=== PATIENT | female | born 1955 | race Caucasian/White ===

== ENCOUNTER 2022-02-13 21:26 | Inpatient (IN) | payer OTHER, SELFPAY ==
--- NOTE | ~2022-02-13 | US_ITS ---
EXAMINATION: US arterial ankle brachial ind DATE: 02/14/2022 11:59 INDICATION: Peripheral arterial disease. TECHNIQUE: Segmental pressures and plethysmographic and Doppler waveforms of the brachial and lower e xtremity arteries were obtained. COMPARISON: None. FINDINGS: Right and left brachial artery pressures of 131 mm Hg and 148 mm Hg, respectively, are concordant (no rmal difference <= 30 mmHg). The right ankle-brachial index (GRECTHEN) is 0.97 (normal >= 0.9-1.0). The right great toe-brachial index (TBI) is 0.50 (normal >= 0.65). Arterial Doppler waveforms are at least biphasic at the ankle. The left GRETCHEN is 1.02. The left TBI is 0.35. Arterial Doppler waveforms are at least biphasic at the a nkle. IMPRESSION: 1. Decreased TBIs, mildly decreased right GRETCHEN, and normal left GRETCHEN, consistent with arterial occlusiv e disease. Note that ABIs be overestimated if arteries are calcified. Reviewed, dictated and finalized at location A. IMPRESSION: 1. Decreased TBIs, mildly decreased right GRETCHEN, and normal left GRETCHEN, consistent with arterial occlusive disease. Note that ABIs be overestimated if arteries ar e calcified.
--- NOTE | ~2022-02-13 | US_ITS ---
EXAMINATION: US venous doppler [facility] DATE: 02/14/2022 11:59 INDICATION: Right lower limb swelling. TECHNIQUE: Grayscale ultrasound images without and with compression and Doppler ultrasound images of the bilateral lower extremity veins were obtained. COMPARISON: None. FINDINGS: The visualized portions of right common femoral vein, profunda (deep) femoral vein, femoral vein, pop liteal vein, peroneal veins, posterior tibial veins, and greater saphenous vein outflow are patent. The visualized portions of left common femoral vein, profunda femoral vein, femoral vein, popliteal v ein, peroneal veins, posterior tibial veins, and greater saphenous vein outflow are patent. IMPRESSION: 1. No deep venous thrombosis. Reviewed, dictated and finalized at location A.
[2022-02-13 21:42] VITALS: BP 109/70; PULSE 79; RESP 16; TEMP 36.7; O2SAT 96
[2022-02-13 23:00] LABS: Squamous Epithelial Cell Urine Rare /hpf (Few); WBC Urine 0-3 /hpf
[2022-02-13 23:03] LABS: Appearance Urine Clear (Clear); Bilirubin Urine Negative (Negative); Blood Urine Negative (Negative); Color Urine Yellow (Yellow); Glucose Urine UA 3+ mg/dL (Negative); Ketones Urine Negative (Negative); Leukocyte Esterase Ur Negative LEU/UL (Negative); Nitrate Urine Negative (Negative); Protein Urine Negative (Negative); Specific Grav Ur 1.015 (1.001-1.035); Urobilinogen Urine 0.2 mg/dL (<2.0)
[2022-02-13 23:04] LABS: Add Urine Microscopic? YES
[2022-02-14] VITALS (14 sets, daily range): BP systolic 112–152; BP diastolic 51–69; PULSE 62–90; RESP 17–25; TEMP 36.1–36.5; O2SAT 95–99; BMI 63.1
--- NOTE | 2022-02-14 00:51 | ED.GENADULT ---
HPI - General Adult General Chief complaint: Unspecified <ALLAN York Last Filed: 02/14/22 04:05> Stated complaint: MULTIPLE COMPLAINTS <ALLAN York Last Filed: 02/14/22 04:05> Time Seen by Provider: 02/13/22 23:50 <ALLAN York Last Filed: 02/14/22 04:05> Source: patient <ALLAN York Last Filed: 02/14/22 04:05> Mode of arrival: ambulatory <ALLAN York Last Filed: 02/14/22 04:05> Limitations: no limitations <ALLAN York Last Filed: 02/14/22 04:05> History of Present Illness HPI narrative: Patient is a 66-year-old female who presents the ED with report of RLE cellulitis and diffuse rash. Patient reports she tripped and fell, landing on her right leg on 01/25. She developed an area of redness to her right anterior vance and was subsequently diagnosed with cellulitis of her right lower extremity. She has been seen at several different urgent cares, and admitted to several different hospitals for evaluation of this. She has finished 2 courses of clindamycin. She feels the cellulitis is not improving and the swelling/redness seems to be encompassing more of her right lower leg. She saw her doctor on Friday of this week and was switched to Keflex. She is only taken 1 day of this. Patient also reports having a diffuse itchy rash throughout her body which she states began a day after receiving IV antibiotics on one of her admissions. She is unsure which antibiotic she was given. She has been taking Benadryl for the itching. Her primary discussed steroids, but did not prescribe them as she is a poorly controlled diabetic. Patient also reports she had a negative RLE Doppler venous ultrasound on 02/05 at [facility]. Patient denies any fever, chills, nausea, vomiting, abdominal pain, CP, SOB. <ALLAN York Last Filed: 02/14/22 04:05> Related Data Home medications: Home Medications Medication Instructions Recorded Confirmed amlodipine 5 mg tablet 5 mg PO DAILY 06/08/19 02/14/22 aspirin 81 mg chewable tablet 81 mg PO DAILY 06/08/19 02/14/22 atenolol 50 mg tablet 50 mg PO DAILY 06/08/19 02/14/22 hydrochlorothiazide 25 mg tablet 25 mg PO DAILY 06/08/19 02/14/22 lisinopril 40 mg tablet 40 mg PO DAILY 06/08/19 02/14/22 metformin 1,000 mg tablet 1,000 mg PO BID 06/08/19 02/14/22 pravastatin 80 mg tablet 80 mg PO DAILY 06/08/19 02/14/22 calcium carbonate 600 mg-vitamin 1 cap PO DAILY 02/14/22 02/14/22 D3 10 mcg (400 unit) capsule empagliflozin 25 mg tablet 25 mg PO DAILY 02/14/22 02/14/22 (Jardiance) furosemide 40 mg tablet 40 mg PO DAILY 02/14/22 02/14/22 glimepiride 2 mg tablet 2 mg PO DAILY 02/14/22 02/14/22 multivitamin with folic acid 400 1 tablet PO DAILY 02/14/22 02/14/22 mcg tablet (Daily-Giulia (with folic acid)) potassium chloride 20 mEq 20 meq PO DAILY 02/14/22 02/14/22 tablet,extended release <Beatriz Prajapati PA-C - Last Filed: 02/14/22 04:05> Allergies/adverse reactions: Allergies Allergy/AdvReac Type Severity Reaction Status Date / Time sulfanilamide Allergy Unknown Itching Verified 02/14/22 00:31 Sulfa (Sulfonamide AdvReac Intermediate ITCHING Verified 02/14/22 00:31 Antibiotics) <Beatriz Prajapati PA-C - Last Filed: 02/14/22 04:05> Review of Systems Review of Systems: CONSTITUTIONAL: Denies fever, chills, or sweats. CARDIOVASCULAR: Denies chest pain, palpitations. RESPIRATORY: Denies cough or dyspnea. GASTROINTESTINAL: Denies abdominal pain, nausea, vomiting. SKIN: Reports RLE redness/swelling, diffuse rash. MUSCULOSKELETAL: Reports RLE pain. NEUROLOGIC: Denies numbness, tingling, or weakness. <Beatriz Prajapati PA-C - Last Filed: 02/14/22 04:05> All systems reviewed & are unremarkable except as noted in HPI and below <Beatriz Prajapati PA-C - Last Filed: 02/14/22 04:05> [facility] Past Medical History Medical History: Medical History (Updated 02/14/22 @ 04:
[2022-02-14 01:05] LABS: Basophils Percent Auto 0.2 % (0.2-1.2); Eosinophils Absolute Auto 0.8 K/mm3 (0-0.3); Eosinophils Percent Auto 6.9 % (0-4.4); Hematocrit 46.4 % (37.0-47.0); Hemoglobin 14.4 g/dL (12.0-15.0); Immature Granulocyte Absolute 0.17 K/mm3 (0.00-0.031); Immature Granulocyte Percent A 1.4 % (0-0.5); Lymphocytes Absolute Auto 2.85 K/mm3 (0.9-3.2); Lymphocytes Percent Auto 23.5 % (18.3-44.2); Mean Corpuscular Volume 90.1 fl (80-100); Mean Platelet Volume 11.4 fl (7.4-10.4); Monocytes Absolute Auto 1.1 K/mm3 (0.1-0.6); Monocytes Percent Auto 9.4 % (2.6-8.5); Neutrophils Absolute Auto 7.1 K/mm3 (1.3-6.7); Neutrophils Percent Auto 58.6 % (45.5-73.1); Platelet Count Result 166 k/mm3 (150-375); Red Blood Count 5.15 M/mm3 (4.2-5.4); Red Cell Distribution Width 13.9 % (11.5-14.5); White Blood Count 12.1 K/mm3 (4.5-10.0)
[2022-02-14 01:26] LABS: Alanine Aminotransferase 23 U/L (6-35); Albumin Level 4.4 g/dL (3.5-5.1); Alkaline Phosphatase 83 U/L (38-126); Anion Gap 10 mmol/L (8-16); Aspartate Amino Transferase 24 U/L (14-36); Bilirubin,Total 0.5 mg/dL (0.2-1.3); Blood Urea Nitrogen 21 mg/dL (7-17); Calcium 8.9 mg/dL (8.4-10.2); Carbon Dioxide 28 mmol/L (22-30); Chloride 100 mmol/L (98-107); Estimated CRCL calculation 75 ml/min; Estimated Glomerular Filt Rate > 60; Glucose 156 mg/dL (65-110); Potassium 4.2 mmol/L (3.4-5.0); Sodium 138 mmol/L (137-145)
[2022-02-14 01:33] LABS: D Dimer 2.74 ug/mL (<0.48)
[2022-02-14] MEDS: ENOXAPARIN 30 MG/0.3 ML SYRINGE SUB-Q (02:29)
[2022-02-14] MEDS: ENOXAPARIN 120 MG/0.8 ML SYRINGE SUB-Q (02:29)
--- NOTE | 2022-02-14 03:08 | ECG_ITS ---
Measurements Intervals [place] Rate: 61 P: 5 ND: 207 QRS: 8 QRSD: 76 T: 45 QT: 430 QTc: 435 Interpretive Statements SINUS RHYTHM LOW QRS VOLTAGE IN PRECORDIAL LEADS [QRS DEFLECTION < 1.0 mV IN CHEST LEADS] MINIMAL ST DEPRESSION [0.025+ mV ST DEPRESSION] NO PREVIOUS ECG AVAILABLE FOR COMPARISON Electronically Signed On 02-14-2022 18:17:22 CDT by Amelia Gallegos M.D.
[2022-02-14] MEDS: SODIUM CHLORIDE 0.9% IV 500 ML 999 ML IV CONT (03:20)
[2022-02-14] MEDS: ONDANSETRON INJ 4 MG/2 ML VIAL IV PUSH (03:20)
--- NOTE | 2022-02-14 03:29 | PC.NURSE ---
Bedside glucose 162
[2022-02-14 03:37] LABS: Glucose Point of Care 162 mg/dl (65-105)
[2022-02-14] MEDS: SODIUM CHLORIDE 0.9% IV 1,000 ML 999 ML IV CONT (03:52)
--- NOTE | 2022-02-14 04:14 | PM.IMHP ---
H&P: HPI History of Present Illness Date/Time: 02/14/22 04:14 Chief Complaint: rash Narrative: This is a 66-year-old female with past medical history significant for morbid obesity, type 2 diabetes mellitus, hypertension, dyslipidemia, sleep apnea on CPAP at nighttime. Patient has been treated for right lower extremity cellulitis in the outpatient setting comes back tonight due to rash in the trunk area and right lower extremity. Patient denies any fevers, rigors, chills, nausea, vomiting, abdominal pain, pain or burning with urination, cough, sputum production. preliminary workup was significant for elevated D-dimer, WBC 76046. Review of Systems Review of Systems: RASH IN THE TRUNK Constitutional: Constitutional: Denies chills, Denies fever(s), Denies malaise and Denies night sweats Eyes: Eyes: Denies change in vision ENT: Denies dysphagia, Denies vertigo, Denies dizziness and Denies odynophagia Cardiovascular: Cardiovascular: Denies chest pain, Denies irregular heart rhythm, Denies lightheadedness, Denies palpitations and Denies dyspnea on exertion Respiratory: Respiratory: Denies chest congestion, Denies cough, Denies excessive phlegm production and Denies dyspnea Gastrointestinal: Gastrointestinal: Denies dyspepsia, Denies heartburn, Denies nausea and Denies vomiting Genitourinary: Genitourinary: Denies dysuria Musculoskeletal: Musculoskeletal: Denies joint swelling and Denies muscle weakness Integumentary/Breasts: Skin/Breast: Reports erythema, Reports rash ( trunk) and Denies skin ulcer Neurologic: Denies vertigo, Denies dizziness, Denies focal weakness and Denies Sensory deficit (Neuro) Endocrine: Endocrine: Denies cold intolerance, Denies fatigue, Denies flushing, Denies heat intolerance, Denies polyphagia, Denies polydipsia and Denies palpitations Hematologic/Lymphatic: Hematologic/Lymphatic: Reports no additional hematologic/lymphatic complaints and Reports as per HPI Allergic/Immunologic: Allergic/Immunologic: Reports other ( rash) PMFSH Past Medical History Medical History (Updated 02/14/22 @ 04:21 by Leslie Scruggs MD) Diabetes Hx of adenomatous colonic polyps Hx of ectopic Hyperlipemia Hypertension Morbid obesity Sleep apnea Surgical History Surgical History History of partial colectomy Hx of colonoscopy Surgical history of tubal ligation Family History Family History (Updated 06/10/19 @ 11:39 by Sho Armstrong APRN) Father Hypertension Mother Hypertension Leukemia Sibling Hypertension Other Thyroid cancer Other Lung cancer Social History Social History Smoking status: Never smoker Alcohol intake: current Alcohol use details: 2 drinks per month Substance use: never Gender identity (if verbalized by the patient): Female Meds Home Medications and Allergies Home Medications Medication Instructions Recorded Confirmed Type amlodipine 5 mg tablet 5 mg PO DAILY 06/08/19 06/10/19 History aspirin 81 mg chewable tablet 81 mg PO DAILY 06/08/19 06/10/19 History atenolol 50 mg tablet 50 mg PO DAILY 06/08/19 06/10/19 History hydrochlorothiazide 25 mg tablet 25 mg PO DAILY 06/08/19 06/10/19 History lisinopril 40 mg tablet 40 mg PO DAILY 06/08/19 06/10/19 History metformin 1,000 mg tablet 1,000 mg PO BID 06/08/19 06/10/19 History pravastatin 80 mg tablet 80 mg PO DAILY 06/08/19 06/10/19 History empagliflozin 25 mg tablet 25 mg PO DAILY 02/14/22 History (Jardiance) multivitamin with folic acid 400 1 tablet PO DAILY 02/14/22 History mcg tablet (Daily-Giulia (with folic acid)) Allergies Allergy/AdvReac Type Severity Reaction Status Date / Time sulfanilamide Allergy Unknown Itching Verified 02/14/22 00:31 Sulfa (Sulfonamide AdvReac Intermediate ITCHING Verified 02/14/22 00:31 Antibiotics) Vital Signs Vital Signs - 24
[2022-02-14 04:16] LABS: Lactic Acid Reflex 1.2 mmol/L (0.7-2.0)
[2022-02-14 04:20] LABS: Troponin I < 0.012 ng/mL (0.000-0.034)
--- NOTE | 2022-02-14 04:40 | ADMGEN ---
This patient, Vi Nuno, was admitted to Medical Room 342-01. Patient/family oriented to hospital policies and general routines including ID bracelet, bed and alarms, visiting hours, pain management, procedures, bathroom and other care routines, personal items, smoking policy, room service/diet, and visiting hours. Information on how to activate the Rapid Response Team has been discussed. Patient/Family are encouraged to report perceived risks to care and to ask questions if they do not understand what they are told or what they should do.
--- NOTE | 2022-02-14 08:12 | PM.IMPN ---
Progress Note: A&P Assessment and Plan (1) Cellulitis of right lower extremity: Code(s): L03.115 - Cellulitis of right lower limb Status: Acute Assessment and Plan: Admit to regular medical floor Monitor vital signs, I&Os, neuro status and patient is a fall risk Monitor serum electrolytes, CBC, cultures, WBC and temp curve Pending cultures Consider a consult with wound care Consult pharmacy for vancomycin dosing, obtain trough level prior to the 4th dose and begin imipenem Pending Venous doppler And GRETCHEN Patient was started on (2) Elevated d-dimer: Code(s): R79.89 - Other specified abnormal findings of blood chemistry Status: Acute Assessment and Plan: venous Doppler pending continue to monitor (3) Morbid obesity: Code(s): E66.01 - Morbid (severe) obesity due to excess calories Status: Acute Assessment and Plan: lifestyle and diet modifications (4) Sleep apnea: Code(s): G47.30 - Sleep apnea, unspecified Status: Acute Assessment and Plan: CPAP at nighttime (5) Diabetes: Code(s): E11.9 - Type 2 diabetes mellitus without complications Status: Acute Assessment and Plan: Continue home meds 1800 calorie carb consistent diet Insulin Lispro sliding scale, Accu-checks qAc and HS and Hold oral hypoglycemics Obtain a HgbA1c (6) Hypertension: Code(s): I10 - Essential (primary) hypertension Status: Acute Assessment and Plan: will hold med dictations for now as patient with systolic below 90 (7) Rash and other nonspecific skin eruption: Code(s): R21 - Rash and other nonspecific skin eruption Status: Acute Assessment and Plan: suspect secondary to antibiotic patient received clindamycin 2 courses local care patient was started on Benadryl q.4 hours p.r.n., Pepcid 20 mg b.i.d., and cetirizine daily.-- no evidence of stridor or respiratory distress. Subjective Date/time seen: 02/14/22 08:12 Interval history: Patient is alert and oriented lying in bed. Patient is morbidly obese female who to presented to [facility] due to cellulitis of the right lower extremity and a diffuse rash that has been persistent since February 06 2022. Patient has tried [id number] medications such as Benadryl with relief of only itching. She continues to have this skin rash and scaly in appearance with some papules on the right lower extremity. For on a will continue Benadryl q.4 hours p.r.n., Pepcid, cetirizine, check venous and arterial Dopplers. Pending CRP. Patient was recently discharged from a nearby facility with a WBC of 10.2 upon discharge. The patient reports that her leg still appears the same as if it did on the day of discharge. She denies any chest pain, shortness breast, nausea, vomiting upset stomach or diarrhea. Patient did have 1 bout of diarrhea but reports today is been normal. She was started on Florastor. Review of Systems Review of Systems: All systems reviewed & are unremarkable except as noted in HPI and below Exam Narrative: General: No acute distress. Mental Status: Awake, alert and oriented to person, place, and time with clear speech. Skin: Skin in warm, dry and intact . ?rashes noted maculopapular rash abdomen borders irregular, color red, distribution and morphology round and serpiginous? Wounds: no wounds Head: Normocephalic and atraumatic. Eyes: Conjunctivae are clear without exudates or hemorrhage. Sclera is non-icteric. EOM are intact, PERRLA. Ears: The external ear and canal are non-tender and without swelling or discharge. Nose: Nasal mucosa is pink and moist. Septum midline. Nares patent bilaterally. Throat: Oral mucosa pink and moist with good dentition. Tongue midline. Neck: The neck supple without adenopathy. Trachea midline. No JVD. Cardiac: S1 and S2 regular rate and rhythm. No murmurs, gallops, or rubs auscultated. Respiratory: Chest wall symm
[2022-02-14 11:14] LABS: CRP 1.1 mg/dL (<1.0)
[2022-02-14] MEDS: diphenhydrAMINE HCl INJ 50 MG/ML VIAL 25 MG IV PUSH ×2 (16:45→20:51)
[2022-02-14] MEDS: SACCHAROMYCES BOULARDII 250 MG CAPSULE PO (17:53)
[2022-02-14 20:39] LABS: Glucose Point of Care 222 mg/dl (65-105)
[2022-02-14] MEDS: FAMOTIDINE 20 MG TABLET PO (20:49)
[2022-02-14] MEDS: MELATONIN 5 MG TABLET PO (20:50)
[2022-02-15] VITALS (11 sets, daily range): BP systolic 112–142; BP diastolic 59–74; PULSE 67–88; RESP 16–27; TEMP 36.2–36.8; O2SAT 95–98
[2022-02-15 05:40] LABS: Basophils Percent Auto 0.4 % (0.2-1.2); Eosinophils Absolute Auto 0.7 K/mm3 (0-0.3); Eosinophils Percent Auto 7.9 % (0-4.4); Hematocrit 41.6 % (37.0-47.0); Hemoglobin 13.2 g/dL (12.0-15.0); Immature Granulocyte Absolute 0.11 K/mm3 (0.00-0.031); Immature Granulocyte Percent A 1.3 % (0-0.5); Lymphocytes Absolute Auto 1.89 K/mm3 (0.9-3.2); Lymphocytes Percent Auto 22.9 % (18.3-44.2); Mean Corpuscular HGB Conc 31.7 g/dl (32-36); Mean Corpuscular Hemoglobin 28.1 pg (26-34); Mean Corpuscular Volume 88.7 fl (80-100); Monocytes Absolute Auto 0.8 K/mm3 (0.1-0.6); Monocytes Percent Auto 9.4 % (2.6-8.5); Neutrophils Absolute Auto 4.8 K/mm3 (1.3-6.7); Neutrophils Percent Auto 58.1 % (45.5-73.1); Platelet Count Result 131 k/mm3 (150-375); Red Blood Count 4.69 M/mm3 (4.2-5.4); Red Cell Distribution Width 13.6 % (11.5-14.5); White Blood Count 8.3 K/mm3 (4.5-10.0)
[2022-02-15 05:49] LABS: Alanine Aminotransferase 19 U/L (6-35); Albumin Level 3.8 g/dL (3.5-5.1); Alkaline Phosphatase 70 U/L (38-126); Anion Gap 8 mmol/L (8-16); Aspartate Amino Transferase 20 U/L (14-36); Bilirubin,Total 0.5 mg/dL (0.2-1.3); Blood Urea Nitrogen 14 mg/dL (7-17); Calcium 8.4 mg/dL (8.4-10.2); Carbon Dioxide 27 mmol/L (22-30); Chloride 100 mmol/L (98-107); Estimated CRCL calculation 92 ml/min; Estimated Glomerular Filt Rate > 60; Glucose 179 mg/dL (65-110); Sodium 135 mmol/L (137-145)
[2022-02-15] MEDS: ACETAMINOPHEN 325 MG TABLET 650 MG PO (06:17)
[2022-02-15] MEDS: diphenhydrAMINE HCl INJ 50 MG/ML VIAL 25 MG IV PUSH ×3 (06:18→21:48)
[2022-02-15] MEDS: SACCHAROMYCES BOULARDII 250 MG CAPSULE PO ×2 (08:41→16:20)
[2022-02-15] MEDS: LORATADINE 10 MG TABLET PO (08:41)
[2022-02-15] MEDS: FAMOTIDINE 20 MG TABLET PO ×2 (08:41→21:47)
[2022-02-15] MEDS: amLODIPine BESYLATE 5 MG TABLET PO (13:07)
[2022-02-15] MEDS: MULTIVITAMINS THERAPEUTIC TAB (*BKC) 1 TABLET PO (13:08)
[2022-02-15] MEDS: POTASSIUM CHLORIDE 20 MEQ TABLET.ER PO (13:08)
[2022-02-15] MEDS: PRAVASTATIN SODIUM 20 MG TABLET 80 MG PO (13:08)
[2022-02-15] MEDS: hydroCHLOROthiazide 25 MG TABLET PO (13:08)
[2022-02-15] MEDS: ASPIRIN 81 MG CHEWABLE TABLET PO (13:08)
[2022-02-15] MEDS: EMPAGLIFLOZIN 25 MG TABLET PO (13:08)
[2022-02-15] MEDS: atenoloL 50 MG TABLET PO (13:09)
[2022-02-15] MEDS: FUROSEMIDE 40 MG TABLET PO (13:09)
[2022-02-15] MEDS: lisinopriL 20 MG TABLET 40 MG PO (13:10)
--- NOTE | 2022-02-15 14:49 | PC.NURSE ---
Pt has some itching. Pt was given IV benadryl that she says helped the itching. Pt up with walker to the bathroom. Will continue to monitor pt.
[2022-02-15 15:32] LABS: Vancomycin Trough 17.1 ug/mL (10.0-20.0)
--- NOTE | 2022-02-15 15:51 | PM.IMPN ---
Progress Note: A&P Assessment and Plan (1) Cellulitis of right lower extremity: Code(s): L03.115 - Cellulitis of right lower limb Status: Acute Assessment and Plan: Admit to regular medical floor Monitor vital signs, I&Os, neuro status and patient is a fall risk Monitor serum electrolytes, CBC, cultures, WBC and temp curve Pending cultures Consider a consult with wound care Consult pharmacy for vancomycin dosing, obtain trough level prior to the 4th dose and begin imipenem Pending Venous doppler And GRETCHEN Patient was started on 02/15/2022 interval history: patient is 66-year-old morbidly obese patient was found to have cellulitis of right lower extremity initially patient was seen in urgent care and oral clindamycin was ordered and patient failed the therapy is cellulitis was worsening and went to [facility] where she was treated with IV clindamycin her cellulitis improved and patient was discharged however patient developed generalized rash and itching without any respiratory symptoms, presented emergency department and being admitted for allergic reaction most likely secondary to clindamycin, pain is being treated with Benadryl and started on vancomycin for cellulitis which appears to be improving, lower extremity Doppler is negative for DVT, not appear to be any distress and rash is resolving. (2) Elevated d-dimer: Code(s): R79.89 - Other specified abnormal findings of blood chemistry Status: Acute Assessment and Plan: venous Doppler pending continue to monitor (3) Morbid obesity: Code(s): E66.01 - Morbid (severe) obesity due to excess calories Status: Acute Assessment and Plan: lifestyle and diet modifications (4) Sleep apnea: Code(s): G47.30 - Sleep apnea, unspecified Status: Acute Assessment and Plan: CPAP at nighttime (5) Diabetes: Code(s): E11.9 - Type 2 diabetes mellitus without complications Status: Acute Assessment and Plan: Continue home meds 1800 calorie carb consistent diet Insulin Lispro sliding scale, Accu-checks qAc and HS and Hold oral hypoglycemics Obtain a HgbA1c (6) Hypertension: Code(s): I10 - Essential (primary) hypertension Status: Acute Assessment and Plan: will hold med dictations for now as patient with systolic below 90 (7) Rash and other nonspecific skin eruption: Code(s): R21 - Rash and other nonspecific skin eruption Status: Acute Assessment and Plan: suspect secondary to antibiotic patient received clindamycin 2 courses local care patient was started on Benadryl q.4 hours p.r.n., Pepcid 20 mg b.i.d., and cetirizine daily.-- no evidence of stridor or respiratory distress. Subjective Date/time seen: 02/15/22 15:51 ?rash HPI-Narrative: ?This is a 66-year-old female with past medical history significant for morbid obesity, type 2 diabetes mellitus, hypertension, dyslipidemia, sleep apnea on CPAP at nighttime.? Patient has been treated for right lower extremity cellulitis in the outpatient setting comes back tonight due to rash in the trunk area and right lower extremity.? Patient denies any fevers, rigors, chills, nausea, vomiting, abdominal pain, pain or burning with urination, cough, sputum production. preliminary workup was significant for elevated D-dimer, WBC 60165. 02/15/2022 interval history: patient is 66-year-old morbidly obese patient was found to have cellulitis of right lower extremity initially patient was seen in urgent care and oral clindamycin was ordered and patient failed the therapy is cellulitis was worsening and went to [facility] where she was treated with IV clindamycin her cellulitis improved and patient was discharged however patient developed generalized rash and itching without any respiratory symptoms, presented emergency department and being admitted for allergic reaction most likely secondary to cli
[2022-02-15] MEDS: metFORMIN HCL 500 MG TABLET 1000 MG PO (16:20)
[2022-02-15 16:52] LABS: Glucose Point of Care 175 mg/dl (65-105)
[2022-02-15 20:51] LABS: Glucose Point of Care 194 mg/dl (65-105)
[2022-02-15] MEDS: MELATONIN 5 MG TABLET PO (21:48)
[2022-02-16] VITALS (8 sets, daily range): BP systolic 106–117; BP diastolic 56–67; PULSE 65–81; RESP 14–22; TEMP 36.2–36.6; O2SAT 96–97
[2022-02-16 05:28] LABS: Basophils Absolute Auto 0.1 K/mm3 (0.0-0.1); Basophils Percent Auto 0.5 % (0.2-1.2); Eosinophils Absolute Auto 0.7 K/mm3 (0-0.3); Eosinophils Percent Auto 6.7 % (0-4.4); Hematocrit 41.3 % (37.0-47.0); Hemoglobin 13.2 g/dL (12.0-15.0); Immature Granulocyte Absolute 0.16 K/mm3 (0.00-0.031); Immature Granulocyte Percent A 1.5 % (0-0.5); Lymphocytes Absolute Auto 2.38 K/mm3 (0.9-3.2); Lymphocytes Percent Auto 22.5 % (18.3-44.2); Mean Corpuscular Hemoglobin 28.3 pg (26-34); Mean Corpuscular Volume 88.4 fl (80-100); Monocytes Absolute Auto 1.1 K/mm3 (0.1-0.6); Monocytes Percent Auto 10.8 % (2.6-8.5); Neutrophils Absolute Auto 6.2 K/mm3 (1.3-6.7); Platelet Count Result 140 k/mm3 (150-375); Red Blood Count 4.67 M/mm3 (4.2-5.4); Red Cell Distribution Width 13.7 % (11.5-14.5); White Blood Count 10.6 K/mm3 (4.5-10.0)
[2022-02-16 05:35] LABS: Alanine Aminotransferase 22 U/L (6-35); Alkaline Phosphatase 73 U/L (38-126); Anion Gap 7 mmol/L (8-16); Aspartate Amino Transferase 25 U/L (14-36); Bilirubin,Total 0.6 mg/dL (0.2-1.3); Blood Urea Nitrogen 18 mg/dL (7-17); Calcium 9.1 mg/dL (8.4-10.2); Carbon Dioxide 29 mmol/L (22-30); Chloride 98 mmol/L (98-107); Estimated CRCL calculation 92 ml/min; Estimated Glomerular Filt Rate > 60; Glucose 163 mg/dL (65-110); Sodium 134 mmol/L (137-145)
[2022-02-16] MEDS: ACETAMINOPHEN 325 MG TABLET 650 MG PO ×2 (06:06→20:39)
[2022-02-16 08:19] LABS: Glucose Point of Care 156 mg/dl (65-105)
[2022-02-16] MEDS: ASPIRIN 81 MG CHEWABLE TABLET PO (09:49)
[2022-02-16] MEDS: atenoloL 50 MG TABLET PO (09:49)
[2022-02-16] MEDS: amLODIPine BESYLATE 5 MG TABLET PO (09:49)
[2022-02-16] MEDS: EMPAGLIFLOZIN 25 MG TABLET PO (09:50)
[2022-02-16] MEDS: FAMOTIDINE 20 MG TABLET PO ×2 (09:50→20:42)
[2022-02-16] MEDS: FUROSEMIDE 40 MG TABLET PO (09:50)
[2022-02-16] MEDS: GLIMEPIRIDE 2 MG TABLET PO (09:50)
[2022-02-16] MEDS: hydroCHLOROthiazide 25 MG TABLET PO (09:50)
[2022-02-16] MEDS: metFORMIN HCL 500 MG TABLET 1000 MG PO ×2 (09:51→16:49)
[2022-02-16] MEDS: PRAVASTATIN SODIUM 20 MG TABLET 80 MG PO (09:51)
[2022-02-16] MEDS: lisinopriL 20 MG TABLET 40 MG PO (09:51)
[2022-02-16] MEDS: POTASSIUM CHLORIDE 20 MEQ TABLET.ER PO (09:51)
[2022-02-16] MEDS: MULTIVITAMINS THERAPEUTIC TAB (*BKC) 1 TABLET PO (09:51)
[2022-02-16] MEDS: LORATADINE 10 MG TABLET PO (09:51)
[2022-02-16] MEDS: SACCHAROMYCES BOULARDII 250 MG CAPSULE PO ×2 (09:52→16:48)
--- NOTE | 2022-02-16 11:57 | PM.IMPN ---
Progress Note: A&P Assessment and Plan (1) Cellulitis of right lower extremity: Code(s): L03.115 - Cellulitis of right lower limb Status: Acute Assessment and Plan: Admit to regular medical floor Monitor vital signs, I&Os, neuro status and patient is a fall risk Monitor serum electrolytes, CBC, cultures, WBC and temp curve Pending cultures Consider a consult with wound care Consult pharmacy for vancomycin dosing, obtain trough level prior to the 4th dose and begin imipenem Pending Venous doppler And GRETCHEN Patient was started on 02/15/2022 interval history: patient is 66-year-old morbidly obese patient was found to have cellulitis of right lower extremity initially patient was seen in urgent care and oral clindamycin was ordered and patient failed the therapy is cellulitis was worsening and went to [facility] where she was treated with IV clindamycin her cellulitis improved and patient was discharged however patient developed generalized rash and itching without any respiratory symptoms, presented emergency department and being admitted for allergic reaction most likely secondary to clindamycin, pain is being treated with Benadryl and started on vancomycin for cellulitis which appears to be improving, lower extremity Doppler is negative for DVT, not appear to be any distress and rash is resolving. 02/16/2022 interval history: patient is 66-year-old morbidly obese patient was found to have cellulitis of right lower extremity initially patient was seen in urgent care and oral clindamycin was ordered and patient failed the therapy as her right lower extremity cellulitis was worsening and went to [facility] where she was treated with IV clindamycin for her cellulitis admitted overnite and patient was discharged on clindamycin, however patient developed generalized rash and itching without any respiratory symptoms, presented emergency department and being admitted for allergic reaction most likely secondary to clindamycin, pain is being treated with Benadryl and started on vancomycin for cellulitis which appears to be improving, lower extremity Doppler is negative for DVT, not appear to be any distress and cellulitis is resolvin, will CPM one more day and possibly discharge patient tomorrow, (2) Elevated d-dimer: Code(s): R79.89 - Other specified abnormal findings of blood chemistry Status: Acute Assessment and Plan: venous Doppler pending continue to monitor (3) Morbid obesity: Code(s): E66.01 - Morbid (severe) obesity due to excess calories Status: Acute Assessment and Plan: lifestyle and diet modifications (4) Sleep apnea: Code(s): G47.30 - Sleep apnea, unspecified Status: Acute Assessment and Plan: CPAP at nighttime (5) Diabetes: Code(s): E11.9 - Type 2 diabetes mellitus without complications Status: Acute Assessment and Plan: Continue home meds 1800 calorie carb consistent diet Insulin Lispro sliding scale, Accu-checks qAc and HS and Hold oral hypoglycemics Obtain a HgbA1c (6) Hypertension: Code(s): I10 - Essential (primary) hypertension Status: Acute Assessment and Plan: will hold med dictations for now as patient with systolic below 90 (7) Rash and other nonspecific skin eruption: Code(s): R21 - Rash and other nonspecific skin eruption Status: Acute Assessment and Plan: suspect secondary to antibiotic patient received clindamycin 2 courses local care patient was started on Benadryl q.4 hours p.r.n., Pepcid 20 mg b.i.d., and cetirizine daily.-- no evidence of stridor or respiratory distress. Subjective Date/time seen: 02/16/22 11:57 02/16/2022 interval history: patient is 66-year-old morbidly obese patient was found to have cellulitis of right lower extremity initially patient was seen in urgent care and oral clindamycin was ordered and patient failed the
[2022-02-16 12:16] LABS: Glucose Point of Care 142 mg/dl (65-105)
[2022-02-16 17:19] LABS: Glucose Point of Care 155 mg/dl (65-105)
[2022-02-16] MEDS: MELATONIN 5 MG TABLET PO (20:38)
[2022-02-16] MEDS: diphenhydrAMINE HCl CAP 25 MG CAPSULE PO (20:38)
[2022-02-16 21:46] LABS: Glucose Point of Care 156 mg/dl (65-105)
[2022-02-17 05:31] VITALS: BP 104/52; PULSE 60; RESP 18; TEMP 36.1; O2SAT 98
[2022-02-17 07:53] LABS: Glucose Point of Care 181 mg/dl (65-105)
[2022-02-17 08:41] VITALS: PULSE 66
[2022-02-17] MEDS: metFORMIN HCL 500 MG TABLET 1000 MG PO (08:41)
[2022-02-17] MEDS: EMPAGLIFLOZIN 25 MG TABLET PO (08:41)
[2022-02-17] MEDS: atenoloL 50 MG TABLET PO (08:41)
[2022-02-17] MEDS: POTASSIUM CHLORIDE 20 MEQ TABLET.ER PO (08:41)
[2022-02-17] MEDS: PRAVASTATIN SODIUM 20 MG TABLET 80 MG PO (08:41)
[2022-02-17] MEDS: amLODIPine BESYLATE 5 MG TABLET PO (08:41)
[2022-02-17] MEDS: ASPIRIN 81 MG CHEWABLE TABLET PO (08:41)
[2022-02-17] MEDS: lisinopriL 20 MG TABLET 40 MG PO (08:42)
[2022-02-17] MEDS: FUROSEMIDE 40 MG TABLET PO (08:42)
[2022-02-17] MEDS: FAMOTIDINE 20 MG TABLET PO (08:42)
[2022-02-17] MEDS: hydroCHLOROthiazide 25 MG TABLET PO (08:42)
[2022-02-17] MEDS: MULTIVITAMINS THERAPEUTIC TAB (*BKC) 1 TABLET PO (08:42)
[2022-02-17] MEDS: LORATADINE 10 MG TABLET PO (08:42)
[2022-02-17] MEDS: SACCHAROMYCES BOULARDII 250 MG CAPSULE PO (08:42)
[2022-02-17] MEDS: GLIMEPIRIDE 2 MG TABLET PO (08:43)
--- NOTE | 2022-02-17 10:47 | PM.DS ---
DS: Admitting Diagnosis Discharge Date 02/17/2022 Admitting Diagnosis Rash DS: Discharge Diagnosis Discharge Diagnosis (1) Cellulitis of right lower extremity: Code(s): L03.115 - Cellulitis of right lower limb Status: Acute Assessment and Plan: Admit to regular medical floor Monitor vital signs, I&Os, neuro status and patient is a fall risk Monitor serum electrolytes, CBC, cultures, WBC and temp curve Pending cultures Consider a consult with wound care Consult pharmacy for vancomycin dosing, obtain trough level prior to the 4th dose and begin imipenem Pending Venous doppler And GRETCHEN Patient was started on 02/15/2022 interval history: patient is 66-year-old morbidly obese patient was found to have cellulitis of right lower extremity initially patient was seen in urgent care and oral clindamycin was ordered and patient failed the therapy is cellulitis was worsening and went to [facility] where she was treated with IV clindamycin her cellulitis improved and patient was discharged however patient developed generalized rash and itching without any respiratory symptoms, presented emergency department and being admitted for allergic reaction most likely secondary to clindamycin, pain is being treated with Benadryl and started on vancomycin for cellulitis which appears to be improving, lower extremity Doppler is negative for DVT, not appear to be any distress and rash is resolving. 02/16/2022 interval history: patient is 66-year-old morbidly obese patient was found to have cellulitis of right lower extremity initially patient was seen in urgent care and oral clindamycin was ordered and patient failed the therapy as her right lower extremity cellulitis was worsening and went to [facility] where she was treated with IV clindamycin for her cellulitis admitted overnite and patient was discharged on clindamycin, however patient developed generalized rash and itching without any respiratory symptoms, presented emergency department and being admitted for allergic reaction most likely secondary to clindamycin, pain is being treated with Benadryl and started on vancomycin for cellulitis which appears to be improving, lower extremity Doppler is negative for DVT, not appear to be any distress and cellulitis is resolvin, will CPM one more day and possibly discharge patient tomorrow, (2) Elevated d-dimer: Code(s): R79.89 - Other specified abnormal findings of blood chemistry Status: Acute Assessment and Plan: venous Doppler pending continue to monitor (3) Morbid obesity: Code(s): E66.01 - Morbid (severe) obesity due to excess calories Status: Acute Assessment and Plan: lifestyle and diet modifications (4) Sleep apnea: Code(s): G47.30 - Sleep apnea, unspecified Status: Acute Assessment and Plan: CPAP at nighttime (5) Diabetes: Code(s): E11.9 - Type 2 diabetes mellitus without complications Status: Acute Assessment and Plan: Continue home meds 1800 calorie carb consistent diet Insulin Lispro sliding scale, Accu-checks qAc and HS and Hold oral hypoglycemics Obtain a HgbA1c (6) Hypertension: Code(s): I10 - Essential (primary) hypertension Status: Acute Assessment and Plan: will hold med dictations for now as patient with systolic below 90 (7) Rash and other nonspecific skin eruption: Code(s): R21 - Rash and other nonspecific skin eruption Status: Acute Assessment and Plan: suspect secondary to antibiotic patient received clindamycin 2 courses local care patient was started on Benadryl q.4 hours p.r.n., Pepcid 20 mg b.i.d., and cetirizine daily.-- no evidence of stridor or respiratory distress. DS: Summary Hospital Course Reason for hospitalization: rash Narrative: ?This is a 66-year-old female with past medical history significant for morbid obesity, type 2 diabetes mellit
[2022-02-17 12:02] LABS: Glucose Point of Care 130 mg/dl (65-105)
[2022-02-17 14:00] VITALS: BP 113/64; PULSE 78; RESP 16; TEMP 35.8; O2SAT 100
== END 2022-02-17 15:00 | disposition home or self-care (01) | DRG 603 ==
LOC: ANHED 02-14 03:39 → ANH3MED 02-14 03:59
PROVIDERS: Nurse Practitioner Family; Physician Assistant; Admitting Provider Internal Medicine; Emergency Provider Emergency Medicine; PCP Internal Medicine Infectious Disease; Visit Provider Family Medicine
DX: L03.115 Cellulitis of right lower limb (principal); Z68.44 Body mass index [BMI] 60.0-69.9, adult; L27.0 Generalized skin eruption due to drugs and medicaments taken internally; E11.9 Type 2 diabetes mellitus without complications; I10 Essential (primary) hypertension; E66.01 Morbid (severe) obesity due to excess calories; E78.5 Hyperlipidemia, unspecified; G47.30 Sleep apnea, unspecified; T36.8X5A Adverse effect of other systemic antibiotics, initial encounter; R79.89 Other specified abnormal findings of blood chemistry; Z91.81 History of falling; R22.41 Localized swelling, mass and lump, right lower limb; Z90.49 Acquired absence of other specified parts of digestive tract; Z79.84 Long term (current) use of oral hypoglycemic drugs; Z79.82 Long term (current) use of aspirin
CPT/HCPCS: 36415; 80053; 80202; 81001; 82948; 83605; 84484; 85025; 85055; 85380; 86038; 86039; 86140; 87040; 87081; 93005; 93922; 93970; 94660; 96361; 96365; 96366; 96367; 96372; 96375; 96376; 99285; A9270; G0378; J0743; J1200; J1650; J2405; J3370; J7030; J7040

== ENCOUNTER 2023-09-06 13:04 | Emergency (ER) | payer OTHER, SELFPAY ==
--- NOTE | ~2023-09-06 | CT_ITS ---
EXAMINATION: CT abdomen pelvis w con DATE: 09/06/2023 14:30 INDICATION: RLQ and periumbilical pain TECHNIQUE: Computed tomography (CT) of the abdomen and pelvis was performed following the urinary byron ding the exam were intravenous contrast. Automated exposure control and iterative reconstruction tech nique were employed. The dose-length product was 1463.71 mGy-cm. COMPARISON: None. FINDINGS: Lower thorax: Bibasilar scar/atelectasis. Mitral, aortic valve, and mediastinal node calcification Liver: Normal. Biliary/Gallbladder: Gallbladder is absent. No bile duct dilation. Pancreas: No mass or duct dilation. Spleen: Normal. Adrenals:No mass. Kidneys: No suspicious mass, obstructing stone, or hydronephrosis. Simple left renal cysts. GI tract: No small or large bowel dilation. Uncomplicated transverse colon anastomosis. Status post r ight colon resection. Appendix surgically absent. Mesentery/Peritoneum: No ascites, mass, or free air. Retroperitoneum: No mass. Atherosclerotic abdominal aortic and/or arterial calcifications. Pelvis: Pelvic organs are within normal limits. Soft Tissues: Large fat-containing uncomplicated umbilical hernia. Uncomplicated small fat-containing adjacent ventral hernias. Bones: No acute osseous finding. IMPRESSION: No acute abdominopelvic process detected. Reviewed, dictated and finalized at location K. 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
[2023-09-06 13:08] VITALS: BP 120/75; PULSE 70; RESP 20; TEMP 36.9; O2SAT 97
--- NOTE | 2023-09-06 13:33 | ED.ABDPAIN ---
HPI - Abdominal Pain General Chief Complaint: Abdominal Pain Stated Complaint: abdominal pain Time Seen by Provider: 09/06/23 13:23 History of Present Illness HPI narrative: 68-year-old female with a history of diabetes, hypertension, hyperlipidemia, TOMAS, morbid obesity presents to the emergency department for abdominal pain since 0300 today. Patient states the pain is near her umbilicus where she has a known hernia. States it was radiating into her flank but is no longer. Prior abdominal surgeries include a bowel resection 10+ years ago for reported polyp and a salpingectomy many years ago for a ectopic . She reports associated nausea and diaphoresis, no emesis or fevers. Denies chest pain or shortness of breath, dysuria or hematuria, diarrhea. Last bowel movement was within the past hour and normal. Related Data Home Medications Medication Instructions Recorded Confirmed amlodipine 5 mg tablet 5 mg PO DAILY 06/08/19 02/14/22 aspirin 81 mg chewable tablet 81 mg PO DAILY 06/08/19 02/14/22 atenolol 50 mg tablet 50 mg PO DAILY 06/08/19 02/14/22 hydrochlorothiazide 25 mg tablet 25 mg PO DAILY 06/08/19 02/14/22 lisinopril 40 mg tablet 40 mg PO DAILY 06/08/19 02/14/22 metformin 1,000 mg tablet 1,000 mg PO BID 06/08/19 02/14/22 pravastatin 80 mg tablet 80 mg PO DAILY 06/08/19 02/14/22 calcium carbonate 600 mg-vitamin 1 cap PO DAILY 02/14/22 02/14/22 D3 10 mcg (400 unit) capsule empagliflozin 25 mg tablet 25 mg PO DAILY 02/14/22 02/14/22 (Jardiance) furosemide 40 mg tablet 40 mg PO DAILY 02/14/22 02/14/22 glimepiride 2 mg tablet 2 mg PO DAILY 02/14/22 02/14/22 multivitamin with folic acid 400 1 tablet PO DAILY 02/14/22 02/14/22 mcg tablet (Daily-Giulia (with folic acid)) potassium chloride 20 mEq 20 meq PO DAILY 02/14/22 02/14/22 tablet,extended release Allergies Allergy/AdvReac Type Severity Reaction Status Date / Time sulfanilamide Allergy Unknown Itching Verified 09/06/23 13:59 Sulfa (Sulfonamide AdvReac Intermediate ITCHING Verified 09/06/23 13:59 Antibiotics) Review of Systems Review of Systems: CONSTITUTIONAL: See HPI EYES: Denies visual changes, redness, or discharge. ENT: Denies rhinorrhea, congestion, sore throat, or otalgia. CARDIOVASCULAR: Denies chest pain, palpitations, or edema. RESPIRATORY: Denies cough or dyspnea. GASTROINTESTINAL: See HPI GENITOURINARY: Denies dysuria or hematuria. SKIN: Denies rash or itching. MUSCULOSKELETAL: Denies back pain, joint pain, or myalgia. NEUROLOGIC: Denies headache, numbness, or weakness. PSYCHIATRIC: Denies anxiety or depression. [facility] Past Medical History Medical History Diabetes Hx of adenomatous colonic polyps Hx of ectopic Hyperlipemia Hypertension Morbid obesity Sleep apnea Surgical History Surgical History History of partial colectomy Hx of colonoscopy Surgical history of tubal ligation Family History Family History Father Hypertension Mother Hypertension Leukemia Sibling Hypertension Other Thyroid cancer Other Lung cancer Social History Social History Smoking status: Never smoker Alcohol intake: current Alcohol use details: 2 drinks per month Substance use: never Substance use type: does not use Living arrangements: with family Gender identity (if verbalized by the patient): Female Spiritual care concerns: No Exam Narrative: GENERAL: Well-appearing, well-nourished, and in no acute distress. HEAD: Normocephalic, atraumatic. EYES: PERRLA and EOMI. ENT: Nares clear, no rhinorrhea or epistaxis. Mucous membranes moist. NECK: Supple. CHEST: Clear to auscultation. No respiratory distress. HEART: Regular rate and rhythm. No murmur heard. Normal peripheral
--- NOTE | 2023-09-06 13:36 | ECG_ITS ---
Measurements Intervals [place] Rate: 71 P: 30 TN: 220 QRS: 8 QRSD: 75 T: 53 QT: 386 QTc: 422 Interpretive Statements SINUS RHYTHM WITH FIRST DEGREE AV BLOCK LOW QRS VOLTAGE IN PRECORDIAL LEADS CONSIDER INFERIOR INFARCT, AGE INDETERMINATE BORDERLINE ST-T WAVE ABNORMALITY- HIGH LATERAL LEADS BASELINE ARTIFACT- I, II, AVR, V6 ABNORMAL ECG COMPARED TO ECG 02/14/2022 03:17:13 FIRST DEGREE AV BLOCK NOW PRESENT Electronically Signed On 09-06-2023 17:04:03 EQUIPMENT LEAD by Oseas No D.O.
[2023-09-06 13:51] LABS: Basophils Absolute Auto 0.1 K/mm3 (0.0-0.1); Basophils Percent Auto 0.5 % (0.2-1.2); Eosinophils Absolute Auto 0.4 K/mm3 (0-0.3); Hematocrit 43.9 % (37.0-47.0); Hemoglobin 14.2 g/dL (12.0-15.0); Immature Granulocyte Absolute 0.08 K/mm3 (0.00-0.031); Immature Granulocyte Percent A 0.8 % (0-0.5); Lymphocytes Absolute Auto 1.66 K/mm3 (0.9-3.2); Lymphocytes Percent Auto 16.6 % (18.3-44.2); Mean Corpuscular HGB Conc 32.3 g/dl (32-36); Mean Corpuscular Hemoglobin 28.5 pg (26-34); Mean Corpuscular Volume 88.2 fl (80-100); Monocytes Absolute Auto 0.9 K/mm3 (0.1-0.6); Neutrophils Absolute Auto 6.9 K/mm3 (1.3-6.7); Neutrophils Percent Auto 69.1 % (45.5-73.1); Platelet Count Result 306 k/mm3 (150-375); Red Blood Count 4.98 M/mm3 (4.2-5.4); Red Cell Distribution Width 13.6 % (11.5-14.5)
[2023-09-06] MEDS: ACETAMINOPHEN 500 MG TABLET 1000 MG PO (13:54)
[2023-09-06] MEDS: ONDANSETRON INJ 4 MG/2 ML VIAL IV PUSH (13:55)
[2023-09-06 13:56] VITALS: BP 123/89; PULSE 77; RESP 15; O2SAT 99
[2023-09-06 14:01] LABS: Lactic Acid Reflex 1.5 mmol/L (0.7-2.0)
[2023-09-06 14:02] LABS: Alanine Aminotransferase 24 U/L (6-35); Albumin Level 4.2 g/dL (3.5-5.1); Alkaline Phosphatase 80 U/L (38-126); Anion Gap 8 mmol/L (8-16); Aspartate Amino Transferase 25 U/L (14-36); Bilirubin,Total 0.7 mg/dL (0.2-1.3); Blood Urea Nitrogen 19 mg/dL (7-17); Calcium 10.9 mg/dL (8.4-10.2); Carbon Dioxide 26 mmol/L (22-30); Chloride 103 mmol/L (98-107); Estimated CRCL calculation 77 ml/min; Estimated Glomerular Filt Rate > 60; Glucose 162 mg/dL (65-110); Lipase 275 U/L (23-300); Potassium 4.1 mmol/L (3.4-5.0); Sodium 137 mmol/L (137-145)
[2023-09-06 14:05] LABS: Appearance Urine Clear (Clear); Bilirubin Urine Negative (Negative); Blood Urine Negative (Negative); Color Urine Yellow (Yellow); Glucose Urine UA 3+ mg/dL (Negative); Ketones Urine Trace mg/dL (Negative); Leukocyte Esterase Ur Negative LEU/UL (Negative); Nitrate Urine Negative (Negative); Protein Urine Negative (Negative); Urobilinogen Urine 0.2 mg/dL (<2.0)
[2023-09-06 14:10] LABS: Add Urine Microscopic? NO; Specific Grav Ur 1.039 (1.001-1.035)
[2023-09-06] MEDS: SODIUM CHLORIDE 0.9% IV 1,000 ML 999 ML IV CONT (15:36)
== END 2023-09-06 18:16 | disposition home or self-care (01) ==
PROVIDERS: Emergency Medicine; Emergency Provider Physician Assistant; PCP Internal Medicine Infectious Disease
DX: R10.33 Periumbilical pain (principal); I10 Essential (primary) hypertension; E11.9 Type 2 diabetes mellitus without complications; E78.5 Hyperlipidemia, unspecified; E66.01 Morbid (severe) obesity due to excess calories; Z68.43 Body mass index [BMI] 50.0-59.9, adult; G47.33 Obstructive sleep apnea (adult) (pediatric); Z86.010 Personal history of colon polyps; Z79.84 Long term (current) use of oral hypoglycemic drugs; Z79.82 Long term (current) use of aspirin
CPT/HCPCS: 36415; 74177; 80053; 81003; 83605; 83690; 85025; 93005; 96361; 96374; 99284; A9270; J2405; J7030; Q9967

== ENCOUNTER 2025-04-28 12:25 | Emergency (ER) | payer OTHER, SELFPAY ==
[2025-04-28] VITALS (39 sets, daily range): BP systolic 87–134; BP diastolic 60–103; PULSE 59–95; RESP 12–29; TEMP 36.6–36.9; O2SAT 86–100
--- NOTE | ~2025-04-28 | XR_ITS ---
EXAMINATION: XR shoulder LT min 2V, 04/28/2025 13:50 CDT HISTORY: post reduction film COMPARISON: Comparison same day. Findings: The humeral head is dislocated inferiorly. No significant degenerative changes. Soft tissues unremarkable. Impression: Persistent dislocation Reviewed, dictated and finalized at location P. Impression: Persistent dislocation
--- NOTE | ~2025-04-28 | XR_ITS ---
EXAMINATION: XR shoulder LT min 2V DATE: 04/28/2025 12:54 INDICATION: Fall. TECHNIQUE: 3 images of the left shoulder were obtained COMPARISON: None FINDINGS: Anterior dislocation of the left humeral head relative to the left glenohumeral joint. No fracture identified. Mild degenerative change in the left acromioclavicular joint. Bones appear osteopenic. IMPRESSION: 1. Anterior dislocation of the left humeral head relative to the left glenohumeral joint. A postreduction x-ray is recommended 2. No fracture identified. Reviewed, dictated and finalized at location Q. IMPRESSION: 1. Anterior dislocation of the left humeral head relative to the left glenohume ral joint. A postreduction x-ray is recommended 2. No fracture identified.
--- NOTE | ~2025-04-28 | XR_ITS ---
EXAMINATION: XR shoulder LT min 2V, 04/28/2025 14:00 CDT HISTORY: post reduction film COMPARISON: Comparison: Same day Findings: No acute fracture or malalignment. No significant degenerative changes. Soft tissues unremarkable. Impression: Interval reduction. Reviewed, dictated and finalized at location P. Impression: Interval reduction.
--- NOTE | 2025-04-28 12:28 | ECG_ITS ---
Test Date: 2025-04-28 12:39:22 Measurements Intervals [place] Rate: 70 P: -48 RI: 174 QRS: 21 QRSD: 81 T: 47 QT: 419 QTc: 454 Interpretive Statements SINUS RHYTHM WITH OCCASIONAL VENTRICULAR PREMATURE COMPLEXES LOW QRS VOLTAGE IN PRECORDIAL LEADS ANTEROSEPTAL INFARCT, AGE INDETERMINATE BASELINE ARTIFACT- I, II, III, AVR, AVL, AVF, V1, V3 ABNORMAL ECG No previous ECG available for comparison Electronically Signed On 04-28-2025 12:47:22 CDT by Oseas No D.O.
[2025-04-28] MEDS: ONDANSETRON INJ 4 MG/2 ML VIAL IV PUSH (12:39)
[2025-04-28] MEDS: MORPHINE SULFATE (*CRX) 4 MG/ML INJ IV PUSH (12:39)
--- NOTE | 2025-04-28 13:02 | PC.NURSE ---
This RN observed the pts monitor and O2 was about 88%. Went into the room and pt was asleep. Pt woke up as I entered. Asked pt if I could sit her up to try and improve her O2 saturation, however she declined because it was the most comfortable position for her shoulder injury. Pt O2 was better once she was awake. Pt is now @ 95% on RA. Pt reported that she does have sleep apnea and sleeps with a CPAP at home.
--- NOTE | 2025-04-28 13:19 | PC.NURSE ---
Per Lucille RN, pt moved to room 14 d/t shoulder dislocation and possible sedation needed to put back in palce.
[2025-04-28] MEDS: SODIUM CHLORIDE 0.9% IV 1,000 ML 999 ML (13:30)
--- OUTSIDE RECORDS SUMMARY | 2025-04-28 14:08 | XMS_ITS | Clinical Summary ---
Author Organization [facility] Address [address] [place] [address] Care Team Providers Care Manager Human Capital Name Role Phone Unavailable Primary Care Provider Unavailabl e Social History Tobacco Use Types Packs/Day Years Used Date Smoking Tobacco: Never Assessed Comments Unknown Sex and Gender Information Value Date Recorded Sex Assigned at Not on file Legal Sex Female 7:37 AM CDT Gender Identity Not on file Sexual Orientation Not on file Plan of Treatment Health Maintenance Due Date Last Done Comments Colorectal Cancer Screening Colonoscopy (10 Years) 1955 Hepatitis C 1973 DTaP, Tdap and Td Vaccines ( 1 - Tdap) 1974 Mammogram Screening 1995 Pneumococcal Vaccine: 50+ Ye ars (1 of 1 - PCV) 2005 Zoster Vaccines (1 of 2) 2005 Annual Medicare Wellness Visit 2020 Dexa Scan (General) 2020 COVID-19 Vaccine (1 - 2023-2 5 season) 2025 Influenza Adult (#1) 2025 RSV Immunization or 60+ Years (1 - 1-dose 75+ series) 2030 Hepatitis A Vaccines Aged Out No long er eligible based on patient's age to complete this topic Meningococcal B Vaccine Aged Out No l onger eligible based on patient's age to complete this topic Meningococcal Vaccine Aged Out No blaze sinan eligible based on patient's age to complete this topic RSV Immunizations Under 20 Months Aged Out No longer eligible based on patient's age to complete this topic Insurance [facility]
--- OUTSIDE RECORDS SUMMARY | 2025-04-28 14:08 | XMS_ITS | Clinical Summary ---
Author Organization [facility] Address [address] [address] Phone Care Team Providers Care Director Center Name Role Phone Jocelyne Meyers MD Primary Care Provider Allergies Active Allergy Reactions Criticality Noted Date Comments Clindamycin Itching,Rash 05/14/2022 Sulfate Unknown 08/31/2015 Medications lisinopril (PRINIVIL, ZESTRIL) 40 MG Tablet Take 40 mg by mouth daily. Active hydrochlorothia zide 25 MG Tablet Take 25 mg by mouth daily. Active atenolol (TENORMIN) 50 MG Tablet Take 50 mg by mouth daily. Active MetFORMIN HCl 1000 MG (MOD) TABLET SR 24 HR Take 1,000 Tabs by mouth 2 times daily. This RX is for Metformin SR. Active Aspirin 81 MG Tablet Take 81 mg by mouth daily. Active Calcium Carb-Cholecalci ferol (CALCIUM + D3 PO) Take by mouth 2 times daily. Active polyethylene glycol (MIRALAX) Powder Use entire 255g bottle with 64oz of clear liquid as directed for colonoscopy prep. 255 g 0 7 Active pravastatin (PRAVACHOL) 80 MG Tablet Take 80 mg by mouth. 0 Active furosemide (LASIX) 40 MG Tablet furosemide 40 mg tablet TAKE 1 TABLET BY MOUTH EVERY DAY NEEDED FOR 7 DAYS. Active empagliflozin (JARDIANCE) 25 MG Tablet Jardiance 25 mg tablet TAKE 1 TABLET BY MOUTH EVERY DAY 0 Active Lancets (OneTouch Delica Plus [id number]) [facility] USE TO TEST ONCE DAILY 2 Active Multiple Vitamin (Daily-Giulia Multivitamin) Tablet Take 1 Tablet by mouth daily. 2 Active hydroxychloroqu ine (PLAQUENIL) 200 MG Tablet Take 1 Tablet by mouth daily. 3 Active amLODIPine (NORVASC) 10 MG Tablet Take 10 mg by mouth daily. 3 Active Ozempic, 1 MG/DOSE, 4 MG/3ML Solution Pen-injector INJECT ONE MG UNDER THE SKIN EVERY WEEK 3 Active Active Problems Problem Noted Date Diagnosed Date Thrombocytopenic disorder 05/29/2022 Iron deficiency anemia 05/27/2022 Obstructive sleep apnea syndrome 08/28/2020 Primary hypertension 02/16/2018 Hyperlipidemia 02/16/2018 Diabetes mellitus 02/16/2018 Immunizations Immunization Administration Dates Next Due Covid-19 Vaccine, Vector-nr, [id number], Pf, 0.5 Ml ([employer]Scy[employer]) 09/12/2020 Influenza A Monovalent (H5n1 ), Adjuvanted-201204/06/2014 Influenza, Injectable, Quadrivalent 03/08,05/10/2021,04/06/2020,2018,03/16/2018,03/20/2017,05/13/2016,0 04/03/2015 Pneumococcal Vaccine - 13 Valent 12/22/2020 Pneumococcal Vaccine Adult - 23 Valent 03/20/2017 TDAP Vaccine 10/08/2021,07/07/2011 Family History Medical History Relation Name Comments Hypertension Father Abdominal Aortic Aneurysm Mother Hypertension Mother Leukemia/Lymphoma Mother Leukemia Hypertension Sister Relation Name Status Comments Brother Alive Father Alive Mother Sister Alive Social History Tobacco Use Types Packs/Day Years Used Date Smoking Tobacco: Never Smokeless Tobacco: Never Tobacco Cessation:Counseling Given: Not Answered Alcohol Use Standard Drinks/Week Comments Yes 0 (1 standard drink = 0.6 oz pur e alcohol) 4 Bloody Katharine's every 2 years Sexually Active Control Partners Comments Not Currently Comments No Sex and Gender Information Value Date Recorded Sex Assigned at Not on file Legal Sex Female 12:14 AM CDT Gender Identity Not on file Sexual Orientation Not on file Last Filed Vital Signs Vital Sign Reading Time Taken Comments Blood Pressure 128/70 02/11/2023 7:57 AM CDT Pulse 81 02/11/2023 7:57 AM CDT Temperature 36.8 C (98.2 F) 02/11/2023 7:57 AM CDT Respiratory Rate 18 02/11/2023 7:57 AM CDT Oxygen Saturation 95% 02/11/2023 7:57 AM CDT Inhaled Oxygen Concentration - - Weight 134.9 kg (297 lb 6.4 oz) 02/11/2023 7:57 AM CDT Height 157.5 cm (5' 2) 02/11/2023 7:57 AM CDT Body Mass Index 54.4 02/11/2023 7:57 AM CDT Plan of Treatment Health Maintenance Due Date Last Done Comments DEXA Bone Density 1955 Diabetes: Eye Exam 1955 Diabetes: Foot Exam 1955 Mammogram 1955 Cologuard 2000 Immunochemical Fecal Occult Blood 2000 Diabetes: Hemoglobin A1c 10/24/2015 04/24/2015 SARS-COV-2 Immunization (2 - Oscar risk series) 10/10/2020 09/12/2020 Colonoscopy 06/27/2021 06/27/2019, 11/2018, 06/09/2019, Additional history exists Colorectal Cancer Screening 06/27/2021 Medicare Initial AWV [id number] 07/07/2022 Diabetes: Nephropathy Screening 02/12/2024 02/11/2023, 04/15/2022 Influenza Immunization (#1) 03/07/20250 03/2024, 05/08/2023, 04/02/2022, Additional history exists Td Immunization Every 10 Years (Adults With 1 Tdap) 10/09/2031 10/08/2021, 07/07/2011 DTaP/Tdap/Td Immunization Discontinued 10/08/2021, 07/2011 Hepatitis C Virus (HCV) Screening Completed 12/12/2022 Pneumococcal Immunization (50+ years) Completed 08/04/2023, 12/22/2020, 03/20/2017 Pneumococcal Immunization Combined Discontinued 08/04/2023, 12/22/2020, 03/20/2017 Zoster Immunization Completed 06/26/2024, 4 Respiratory Syncytial Virus (RSV) Immunization (Adult) Completed 02/08/2025 Hepatitis B Immunization Aged Out No longer eligible based on patient's age to complete this topic Human Papillomavirus (HPV) Immunization Aged Out No longer eligible based on patient's age to complete this topic Meningococcal Immunization (ACWY) Aged Out No longer eligible based on patient's age to complete this topic Rotavirus Immunization Aged Out No lo nger eligible based on patient's age to complete this topic Procedures Procedure Name Priority Date/Time Associated Diagnosis Comments CMP (COMPREHENSIVE METABOLIC PANEL) Routine 02/11/2023 7:43 AM CDT Thrombocytopenia (HCC) HM COLONOSCOPY Routine 06/10/2019 HEMOGLOBIN, A1C Routine 04/24/2015 from Last 3 Months or Most Recently Relevant to Health Maintenance Results * (ABNORMAL) CMP (COMPREHENSIVE METABOLIC PANEL) (02/11/2023 7:43 AM CDT) Glucose 169(H) 70 - 105 mg/dL [facility] Blood Urea Nitrogen 21 7 - 25 mg/dL [facility] Creatinine 0.8 0.6 - 1.2 mg/dL [facility] Sodium 138 136 - 145 mEq/L [facility] Potassium 4.3 3.5 - 5.1 mEq/L [facility] Chloride 101 98 - 107 mEq/L [facility] Bicarbonate 26 21 - 31 mEq/L [facility] Total Bilirubin 0.4 0.3 - 1.0 mg/dL [facility] Alk. Phosphatase 67 34 - 104 U/L [facility] Aspartate Aminotransferase 15 13 - 39 U/L [facility] Alanine Aminotransferase 17 7 - 52 U/L [facility] Total Protein 7.0 6.4 - 8.9 g/dL [facility] Albumin 4.2 3.5 - 5.7 g/dL [facility] Calcium 10.0 8.6 - 10.3 mg/dL [facility] Anion Gap 15.3(H) 7.0 - 15.0 mEq/L [facility] Globulin 2.8 2.0 - 3.5 g/dL [facility] EGFR 80 >60 ml/min/1. 73m2 [facility] Comment: This eGFR is calculated using 2020 CKD-EPI Creatinine equation without race modifier based on the NKF-ASN task force recommendations Blood 02/11/2023 7:43 AM CDT Narrative [facility] - 02/11/2023 8:56 AM CDT Release to patient->Immediate IS THE PATIENT REQUIRED TO BE FASTING FOR 8 HOURS?->No Louann Menjivar APRN, CNP CHEMISTRY ORDERABLES Final Result [facility] [address] [place] [address], * COLONOSCOPY (06/10/2019) Mayito Sanchez DO PROCEDURE/MINOR SURGICAL ORDERA BLES Final Result * HEMOGLOBIN, A1C (04/24/2015) HGB-A1C 6.5 % Blood specimen (specimen) Jocelyne Meyers MD CHEMISTRY ORDERABLES Ed ited Result - Final from Last 3 Months or Most Recently Relevant to Health Maintenance Insurance MEDICAID [facility] PL[facility] MEDICARE C [facility] Care Teams Director Center Relationship Specialty Start Date End Date Jocelyne Meyers MD [address] [place] [address] PCP - General Internal Medicine 08/28/15
--- OUTSIDE RECORDS SUMMARY | 2025-04-28 14:08 | XMS_ITS | Encounter Summary ---
Author Organization [facility] Address [address] [place] [address] Care Team Providers Care Digital Marketing Executive Name Role Phone Jocelyne Meyers MD Primary Care Provider Reason for Visit * Reason Onset Date Comments Med Question 10/15/2024 Encounter Details Date Type Department Care Team (Late st Contact Info) Description 10/15/2024 Telephone [facility] - Dermatology [address] [place] [address], [facility] [place] [address] Ruslan Valle MD [address] [place] [address] 3 [place] [address] Med Question Social History Tobacco Use Types Packs/Day Years Used Date Smoking Tobacco: Never Smokeless Tobacco: Never Alcohol Use Standard Drinks/Week Comments Yes 0 (1 standard drink = 0.6 oz pur e alcohol) AUDIT-C Answer Date Recorded Q1: How often do you have a drink containing alc ohol? 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 Please assist and advise documented in this encounter Plan of Treatment Upcoming Encounters Date Type Department Care Team (Latest Contact Info) Description 12/12/2025 12:15 PM CDT Hospital Encounter [facility] [address] [place] [address] Lindsay Reid DO [address] [facility] [address] [place] [address] Surgery General 12/12/2025 12:15 PM CDT - 12/12/2025 1:00 PM CDT Surgery [facility] [address] [place] [address] Lindsay Reid DO [address] [facility] [address] [place] [address] COLONOSCOPY DIAGNOSTIC--w/ Jeanette--2 day extended prep Scheduled Procedures Name Priority Associated Diagnoses Date/Ti me COLONOSCOPY DIAGNOSTIC Family history of colon cancer Hx of adenomatous colonic polyps 12/12/2025 12:15 PM CDT documented as of this encounter Visit Diagnoses Not on filedocumented in this encounter Care Teams Digital Marketing Executive Relationship Specialty [place] [address] [place] [phone] PCP - General 01/06/20 documented as of this encounter
--- OUTSIDE RECORDS SUMMARY | 2025-04-28 14:08 | XMS_ITS | Clinical Summary ---
Author Organization [facility] Address [address] [place] [address] Care Team Providers Care Accredited Farm Manager Name Role Phone Jocelyne Meyers MD Primary Care Provider Source Comments [facility],non-owned Affiliates and Associated Physician Practices is amultiple site organization consisting of ambulatory clinics and hospital sitesin [place], [place], [place] and [place]. This disclosure is being madepursuant to the Care Everywhere program and may not contain all information available regarding this patient. Last updated 18.[facility] Allergies Active Allergy Reactions Criticality Noted Date Comments Clindamycin Itching 05/14/2022 Sulfa Drugs Rash High 10/29/2023 Sulfacetamide Rash High 02/16/2018 Sulfate Unknown 08/31/2015 Medications * Be aware that medications may not be up to date on this document. Alwaysverify current medications with the patient. hydroCHLOROth iazide (HYDRODIURIL) 25 MG tablet hydrochlorothiazide 25 mg tablet Active lisinopril (PRINIVIL; ZESTRIL) 40 MG tablet lisinopril 40 mg tablet Active metFORMIN (GLUCOPHAGE) 1000 MG tablet Take 1 (one) tablet by mouth 2 times daily 01/11/20 20 Active pravastatin (PRAVACHOL) 80 MG tablet Take 1 (one) tablet by mouth once daily 01/11/20 20 Active Ozempic, 1 MG/DOSE, 4 MG/3ML pen INJECT ONE MG UNDER THE SKIN EVERY WEEK 11/30/19 23 Active amLODIPine (Norvasc) 10 MG tablet Take 1 (one) tablet by mouth once daily 09/20/19 23 Active Aspirin Low Dose 81 MG tablet Take 1 (one) tablet by mouth once daily 10/04/19 23 Active atenolol (Tenormin) 50 MG tablet Take 1 (one) tablet by mouth once daily 11/30/19 23 Active Calcium + Vitamin D3 600-10 MG-MCG Take 1 (one) tablet by mouth 2 times daily 06/25/20 22 Active Jardiance 25 MG tablet Take 1 (one) tablet by mouth once daily 09/19/19 23 Active Multiple Vitamin (Daily-Giulia Multivitamin) TABS Take 1 (one) tablet by mouth once daily 10/17/19 23 Active polyethylene glycol 3350 (Miralax) 17 GM/SCOOP powder MIX 17 GRAMS (1 CAPFUL) AND DRINK ONCE DAILY NEEDED FOR 7 DAYS 02/15/20 22 Active tacrolimus (Protopic) 0.1 % ointmentIndic ations:Other eczema Apply to affected area on face BID. 30 day supply. 60 g 11 06/23/20 24 Active doxycycline hyclate 100 MG tabletIndicat ions:Acne Vulgaris Take 1 (one) tablet by mouth 2 times daily Reasons: Common Acne 60 tablet 2 10/14/19 25 Active metroNIDAZOLE , topical, (Metrocream) 0.75 % creamIndicati ons:Other rosacea Apply to face twice daily. 3- days supply. 45 g 11 10/14/19 25 Active sodium sulfate-mag sulfate-KCl (Sutab) 2922-936-027 MG tablet At 5pm the night before your colonoscopy, Step 1: open one bottle of the 12 tablets. Step 2: Fill the provided container with 16 ounces of water (up to the fill line). Swallow each tablet with a sip of water and drink the entire amount of water over 15-20 minutes. Step 3: Approximately 1 hour after the last tablet is ingested, fill the provided container again with 16 ounces of water (up to the fill line) and drink the entire amount over 30 minutes. Step 4: Approximately 30 minutes after finishing the second container of water, fill the provided container with 16 ounces of water (up to the fill line) and drink the entire amount over 30 minutes. Step 5: At 4am, the day of your colonoscopy---repeat step 1 through 4 again 1 kit 02/02/20 25 Active bisacodyl EC (Dulcolax) 5 MG tablet Take all 4 tablets orally at noon the day before your colonoscopy 4 tablet 02/08/20 25 Active polyethylene glycol 3350 (Miralax) 17 GM/SCOOP powder Mix all of powder with 64oz liquid. Drink half of mixture at 5pm the night before colonoscopy. Finish at 4am the day of test 238 g 02/08/20 25 Active ezetimibe (Zetia) 10 MG tablet Take 1 (one) tablet by mouth once daily Active Active Problems No known active problems Encounters Date Type Department Care Team Description 02/15/2025 Patient Outreach [facility] [address] [place] [phone] Louise Luna RN 02/14/2025 1:16 PM CDT Anesthesia Event [facility] [address] [place] [phone] Fernandez Torres MD Mette, Katherine A, DMITRY-STOCK SHAPER 02/14/2025 12:15 PM CDT - 02/14/2025 1:00 PM CDT Surgery [facility] [address] [place] [phone] Lindsay Reid DO COLONOSCOPY SCREEN---miralax prep 02/14/2025 10:26 AM CDT - 02/14/2025 2:33 PM CDT Hospital Encounter [facility] [address] [place] [phone] Lindsay Reid DO Surgery General Discharge Disposition: Home or Self Care 02/14/2025 Travel 02/07/2025 Orders Only [facility] [address] [place] [phone] Luci Mcdonald RN 02/03/2025 Patient Outreach [facility] [address] [place] [phone] Luci Mcdonald, RN 02/01/2025 Refill [facility] [address] [place] [phone] Lindsay Reid DO Med Change Request 02/01/2025 Orders Only [facility] [address] [place] [phone] Louise Luna RN from Last 3 Months Social History Tobacco Use Types Packs/Day Years Used Date Smoking Tobacco: Never Smokeless Tobacco: Never Alcohol Use Standard Drinks/Week Comments Yes 0 (1 standard drink = 0.6 oz pur e alcohol) 1 drink every 6 months AUDIT-C Answer Date Recorded Q1: How often do you have a drink containing alc ohol? Monthly or less 01/18/2020 Average Number of Drinks Not on file 020 Frequency of Binge Drinking Not on file 01/04 Comments No Sex and Gender Information Value Date Recorded Sex Assigned at Not on file Legal Sex Female 2:10 PM [employer] Gender Identity Not on file Sexual Orientation Not on file Last Filed Vital Signs Vital Sign Reading Time Taken Comments Blood Pressure 134/8 02/14/2025 2:20 PM CDT Pulse 66 02/14/2025 2:20 PM CDT Temperature 36.6 C (97.8 F) 02/14/2025 1:55 PM CDT Respiratory Rate 11 02/14/2025 2:20 PM CDT Oxygen Saturation 100% 02/14/2025 2:20 PM CDT Inhaled Oxygen Concentration - - Weight 132.1 kg (291 lb 4.8 oz) 025 11:33 AM CDT Height 152.4 cm (5') 02/14/2025 11:33 AM CDT Body Mass Index 56.89 02/14/2025 11:33 AM CDT Plan of Treatment Upcoming Encounters Date Type Department Care Team (Latest Contact Info) Description 12/12/2025 12:15 PM CDT Hospital Encounter [facility] [address] [place] [phone] Lindsay Reid DO [address] [place] [phone] Surgery General 12/12/2025 12:15 PM CDT - 12/12/2025 1:00 PM CDT Surgery [facility] [address] [place] [phone] Lindsay Reid DO [address] [place] [address] COLONOSCOPY DIAGNOSTIC--w/ Jeanette--2 day extended prep Scheduled Procedures Name Priority Associated Diagnoses Date/Ti me COLONOSCOPY DIAGNOSTIC Family history of colon cancer Hx of adenomatous colonic polyps 12/12/2025 12:15 PM CDT Health Maintenance Due Date Last Done Comments BONE DENSITY TESTING 1955 COLOGUARD (AGES 45-75) - COLON CA SCREENING 1955 CT COLONOGRAPHY - COLON CA SCREENING 1955 FIT - COLON CA SCREENING 1955 FLEX SIG - COLON CA SCREENING 1955 MAMMOGRAM 1955 DTAP/TDAP/TD VACCINES (1 - Tdap) 1974 PNEUMOCOCCAL VACCINE 50+ (1 of 1 - PCV) 2005 ZOSTER VACCINE (1 of 2) 2005 Respiratory Syncytial Virus (RSV) Vaccine Pt: or over 60 yrs (1 - Risk 60-74 years 1-dose series) 2015 DEPRESSION SCREENING 07/07/2024 COVID-19 VACCINE (2 - 2024- season) 2025 09/12/2020 INFLUENZA VACCINE (#1) 2025 , 04/02/2022, 05/10/2021, Additional history exists COLON MONITORING 02/14/2035 02/14/2025, 02/14/2025 COLONOSCOPY - COLON CA SCREENING 02/14/2035 02/14/2025, 02/14/2025 Colorectal Cancer Screening 02/14/2035 HEPATITIS C SCREENING Completed 12/12/2022 HEPATITIS B VACCINE Aged Out No longe r eligible based on patient's age to complete this topic HIB VACCINE Aged Out No longer eligi ble based on patient's age to complete this topic HPV VACCINE Aged Out No longer eligi ble based on patient's age to complete this topic MENINGOCOCCAL (Group B) VACCINE SHARED DECISION-MAKING Aged Out No longer eligible based on patient's age to complete this topic MENINGOCOCCAL GROUPS A/C/Y/W VACCINE Aged Out No longer eligible based on patient's age to complete this topic Procedures Procedure Name Priority Date/Time Associated Diagnosis Comments PATHOLOGY TISSUE Routine 02/14/2025 1:40 PM CDT Screening for colon cancer [facility] COLOREC CANC SCRN,SCOPY NOT HI RISK 02/14/2025 1:11 PM CDT Screening for colon cancer Special Needs Message Received: Today Janice Wilson Sarah N., RN Pt informed request pill prep Previous Messages ----- Message ----- From: Luci Mcdonald RN Sent: 11/08/2024 3:52 PM CDT To: Janice Wilson Colonoscopy 02/14 at 1215 Received Date Received Time November 09, 2024 12:13 PM ENDOSCOPY, COLON, SCREENING Routine 02/14/2025 1:09 PM CDT GLUCOSE - POINT OF CARE Routine 02/14/2025 11:53 AM CDT HEPATITIS SCREEN ACUTE ([facility]) Routine 12/12/2022 4:26 PM CDT Positive JERILYN (antinuclear antibody) Rash Polyarthralgia Myalgia, multiple sites Other low back pain from Last 3 Months or Most Recently Relevant to Health Maintenance Results * PATHOLOGY TISSUE (02/14/2025 1:40 PM CDT) Case Report Surgical Pathology Report Case: [id number] Authorizing Provider: Lindsay Reid DO Collected: 02/14/2025 01:40 PM Ordering Location: [facility] Received: 02/14/2025 02:58 PM Pathologist: Julee Fragoso MD Specimens: A) - Polyp Descending, descending colon polyp B) - Polyp Sigmoid, sigmoid colon polyp 02/15/2025 5:23 PM CDT [facility] Final Diagnosis Large intestine, descending colon polyp, biopsy (A): - Tubular adenoma Large intestine, sigmoid colon polyp, biopsy (B): - Hyperplastic polyp 02/15/2025 5:23 PM CDT [facility] at 1723 CDT Microscopic Description and Comment Microscopic examination substantiates the final diagnosis. 02/15/2025 5:23 PM CDT [facility] Clinical History The patient is a 69-year-old woman who presents for high risk colon cancer surveillance (personal history of colonic polyps). Operative procedure/findings: Colonoscopy - 3 mm descending colon polyp, 3 mm sigmoid colon polyp, resected and retrieved. 02/15/2025 5:23 PM CDT [facility] Gross Description The requisition and specimen(s) are identified with the patient's name, Vi Nuno. Received in formalin, specimen A, is one pink-darden glistening segment of soft tissue, 0.0 x 0.3 x 0.2 cm, submitted in toto as cassette A1. Received in formalin, specimen B is one pink-darden, glistening and focally hemorrhagic segment of soft tissue, 0.8 x 0.5 x 0.2 cm, submitted in toto as cassette B1. AL 02/15/2025 5:23 PM CDT [facility] Pathologist Location at [facility] 02/15/2025 5:23 PM CDT [facility] Disclaimer The performance characteristics of all immunohistochemical and indirect immunofluorescence stains (if any) cited in this report were determined by the [facility]opathology Laboratory of [facility]. Some of these tests were developed by our own laboratory and have not been cleared or approved by the US Food and Drug Administration. The FDA does not require this test to go through premarket FDA review. These tests are used for clinical purposes. They should not be regarded as investigational or for research. This laboratory is certified under the Clinical Laboratory Improvement Amendments (CLIA) as qualified to perform high complexity clinical laboratory testing. This case has been personally reviewed and interpreted by the attending (teaching) pathologist. 02/15/2025 5:23 PM CDT [facility] Embedded Images 02/15/2025 5:23 PM CDT [facility] Biopsy, NOS POLYP / Unknown 02/14/2025 1 :40 PM CDT 02/14/2025 2:58 PM CDT Comment:Pre-op diagnosis: Screening for colon cancer [Z12.11] Biopsy, NOS POLYP OF SIGMOID COLON / Unknown 02/14/2025 1:42 PM CDT 02/14/2025 2:58 PM CDT Comment:Pre-op diagnosis: Screening for colon cancer [Z12.11] Lindsay Reid DO LAB - PATHOLOGY/CYTOLOGY ORDERAB LES Final Result [facility] [address] [place] [address], [facility] [phone] * ENDOSCOPY, COLON, SCREENING (02/14/2025 1:09 PM CDT) Report Endoscopy POC Endoscopy Department Report _ Patient Name: Vi Nuno Procedure Date: 02/14/2025 1:09 PM Date of : 1955 Classification: Outpatient Gender: Female Ethnicity: Not or Race: White _ Providers: DO Kiera Mcdowell MD: Procedure: Colonoscopy Indications: High risk colon cancer surveillance: Personal history of colonic polyps Medications: Monitored Anesthesia Care Description of Procedure: Pre-Anesthesia Assessment: - Prior to the procedure, a History and Physical was performed, and patient medications and allergies were reviewed. The patient's tolerance of previous anesthesia was also reviewed. The risks and benefits of the procedure and the sedation options and risks were discussed with the patient. All questions were answered, and informed consent was obtained. Prior Anticoagulants: The patient has taken no anticoagulant or antiplatelet agents. ASA Grade Assessment: III - A patient with severe systemic disease. After reviewing the risks and benefits, the patient was deemed in satisfactory condition to undergo the procedure. After I obtained informed consent, the scope was passed under direct vision. Throughout the procedure, the patient's blood pressure, pulse, and oxygen saturations were monitored continuously. The Colonoscope was introduced through the anus and advanced to the ileocolonic anastomosis. The colonoscopy was somewhat difficult due to inadequate bowel prep. The patient tolerated the procedure well. The quality of the bowel preparation was evaluated using the BBPS ([place] Bowel Preparation Scale) with scores of: Right Colon = 0 (unprepared, mucosa not seen due to solid stool that cannot be cleared or unseen proximal colon segment in a colonoscopy aborted due to inadequate bowel prep), Transverse Colon = 1 (portion of mucosa seen, but other areas not well seen due to staining, residual stool and/or opaque liquid) and Left Colon = 2 (minor amount of residual staining, small fragments of stool and/or opaque liquid, but mucosa seen well). The total BBPS score equals 3. The quality of the bowel preparation was inadequate. The rectum and ileocolonic anastomosis were photographed. Findings: The perianal and digital rectal examinations were normal. Non-bleeding internal hemorrhoids were found during retroflexion. The hemorrhoids were medium-sized and Grade II (internal hemorrhoids that prolapse but reduce spontaneously). A 3 mm polyp was found in the descending colon. The polyp was sessile. The polyp was removed with a cold snare. Resection and retrieval were complete. A 3 mm polyp was found in the sigmoid colon. The polyp was sessile. The polyp was removed with a cold snare. Resection and retrieval were complete. There was evidence of a prior end-to-end ileo-colonic anastomosis in the transverse colon. This was patent and was characterized by healthy appearing mucosa. A moderate amount of semi-solid stool was found in the transverse colon, precluding visualization. Estimated Blood Loss: Estimated blood loss: none. Complications: No immediate complications. Impression: - Preparation of the colon was inadequate and polyps under 1cm may have been missed. - Medium-sized internal hemorrhoids. - One 3 mm polyp in the descending colon, removed with a cold snare. Resected and retrieved. - One 3 mm polyp in the sigmoid colon, removed with a cold snare. Resected and retrieved. - Patent end-to-end ileo-colonic anastomosis, characterized by healthy appearing mucosa. - Stool in the transverse colon. Recommendation: - Discharge patient to home. - Patient has a contact number available for emergencies. The signs and symptoms of potential delayed complications were discussed with the patient. Return to normal activities tomorrow. Written discharge instructions were provided to the patient. - High fiber diet. - Continue present medications. - Await pathology results. - Repeat colonoscopy in 1 year because the bowel preparation was suboptimal. Procedure Code(s): --- Professional --- 46011, Colonoscopy, flexible; with removal of tumor(s), polyp(s), or other lesion(s) by snare technique Diagnosis Code(s): --- Professional --- Z86.010, Personal history of colonic polyps K64.1, Second degree hemorrhoids D12.4, Benign neoplasm of descending colon D12.5, Benign neoplasm of sigmoid colon Z98.0, Intestinal bypass and anastomosis status CPT copyright 2021 [employer]. All rights reserved. The codes documented in this report are preliminary and upon patient services assistant review may be revised to meet current compliance requirements. Lindsay Reid DO 02/14/2025 1:54:58 PM This report has been signed electronically. Note Initiated On: 02/14/2025 1:09 PM Number of Addenda: 0 [facility] [address] [place] [address] [facility] 02/14/2025 1:09 PM CDT us Lindsay Reid DO GI PROCEDURE ORDERABLES Edited R esult - Final [facility] * (ABNORMAL) GLUCOSE - POINT OF CARE (02/14/2025 11:53 AM CDT) Glucose WB/POC 182(H) 70 - 99 mg/dL 02/14/2025 11:54 AM CDT [facility] Specimen Type Venous 02/14/2025 11:54 AM CDT [facility] Blood BLOOD SPECIMEN / Unknown 02/14/2025 11:53 AM CDT 02/14/2025 11:54 AM CDT us Lindsay Reid DO LAB - POINT OF CARE ORDERABLES F inal Result Performing Organization Address City/[facility]/ZIP Co de Phone Number [facility] [address] [place] [address], [facility] [phone] * HEPATITIS SCREEN ACUTE ([facility]) (12/12/2022 4:26 PM CDT) Hepatitis A Virus Antibody IgM Negative Negative [facility] INSURANCE BILL Hepatitis B Virus Surface Antigen Negative Negative [facility] INSURANCE BILL Hepatitis B Core Virus Antibody IgM Negative Negative [facility] INSURANCE BILL Hepatitis C Antibody Non Reactive Non Reactive [facility] INSURANCE BILL Blood BLOOD SPECIMEN / Unknown 12/12/2022 4:26 PM CDT 12/12/2022 Narrative Resulting Agency Comment Lab Testing performed at: [facility] [address] [facility] [phone] us Jerica Yun MD LAB - CHEMISTRY ORDERABLES Final Result [facility] INSURANCE BILL [address] [place] [address] from Last 3 Months or Most Recently Relevant to Health Maintenance Insurance MEDICARE MANAGED CARE PLAN GENERIC MEDICARE ADV Care Teams Accredited Farm Manager Relationship Specialty [place] [address] [place] [address] [phone] PCP - General 01/06/20
--- NOTE | 2025-04-28 15:30 | PC.NURSE ---
Pt was saturating at about 86% and staying there. This RN placed pt on 2L O2. Pt saturating at 96%.
--- NOTE | 2025-04-28 15:34 | ED.UPPEXIN ---
HPI - Extremity Injury (Upper) General Chief Complaint: Extremity Injury, Upper Stated Complaint: L arm pain s/p fall Time Seen by Provider: 04/28/25 12:25 Source: patient and EMS Mode of arrival: EMS Limitations: no limitations History of Present Illness HPI narrative: 69-year-old with a history of hypertension, diabetes, morbid obesity was brought in by EMS with a complains of left shoulder pain after a fall. Patient states that she lost her balance and fell on her left shoulder. She denies any head and neck injuries. She was at the dentist's office in the parking lot. complaint: injury to: left Onset (ago): minute(s) Other Extremity Injury: Left: shoulder Other injuries: none Handedness: right Place: other ([facility] parking lot) Severity: severe Relieving factors: immobilization Exacerbating factors: movement of extremity Context: fall Associated symptoms: denies other symptoms Related Data Home Medications ?Medication ?Instructions ?Recorded ?Confirmed ?Last Taken ?Type amlodipine 5 mg tablet 5 mg PO DAILY 06/08/19 02/14/22 06/10/19 07:00 History aspirin 81 mg chewable tablet 81 mg PO DAILY 06/08/19 02/14/22 06/06/19 09:00 History atenolol 50 mg tablet 50 mg PO DAILY 06/08/19 02/14/22 06/10/19 07:00 History hydrochlorothiazide 25 mg tablet 25 mg PO DAILY 06/08/19 02/14/22 06/09/19 08:00 History lisinopril 40 mg tablet 40 mg PO DAILY 06/08/19 02/14/22 06/10/19 08:00 History metformin 1,000 mg tablet 1,000 mg PO BID 06/08/19 02/14/22 06/09/19 08:00 History pravastatin 80 mg tablet 80 mg PO DAILY 06/08/19 02/14/22 06/09/19 08:00 History calcium 600 mg (as 1 cap PO DAILY 02/14/22 02/14/22 Unknown History carbonate)-vitamin D3 10 mcg (400 unit) capsule empagliflozin 25 mg tablet 25 mg PO DAILY 02/14/22 02/14/22 Unknown History (Jardiance) furosemide 40 mg tablet 40 mg PO DAILY 02/14/22 02/14/22 Unknown History glimepiride 2 mg tablet 2 mg PO DAILY 02/14/22 02/14/22 Unknown History multivitamin with folic acid 400 1 tablet PO DAILY 02/14/22 02/14/22 Unknown History mcg tablet (Daily-Giulia (with folic acid)) potassium chloride 20 mEq 20 meq PO DAILY 02/14/22 02/14/22 Unknown History tablet,extended release Allergies Allergy/AdvReac Type Severity Reaction Status Date / Time sulfanilamide Allergy Unknown Itching Verified 09/06/23 13:59 Sulfa (Sulfonamide AdvReac Intermediate ITCHING Verified 09/06/23 13:59 Antibiotics) Review of Systems Review of Systems: All systems reviewed & are unremarkable except as noted in HPI and below Constitutional: Constitutional: Reports no additional constitutional complaints Eyes: Eyes: Reports no additional eye complaints ENT: Reports system reviewed and no additional complaints, except as documented Cardiovascular: Cardiovascular: Reports no additional cardiovascular complaints Respiratory: Respiratory: Reports no additional respiratory complaints Gastrointestinal: Gastrointestinal: Reports no additional gastrointestinal complaints Musculoskeletal: Musculoskeletal: Reports as per HPI PMFSH Past Medical History Medical History Hx of ectopic Morbid obesity Sleep apnea Diabetes Hypertension Hx of adenomatous colonic polyps Hyperlipemia Surgical History Surgical History Hx of colonoscopy History of partial colectomy Surgical history of tubal ligation Family History Family History Father Hypertension Mother Hypertension Leukemia Sibling Hypertension Other Thyroid cancer Other Lung cancer Social History Social History Smoking status: Never smoker Alcohol intake: current Alcohol use details: 2 drinks per month Substance use: never Substance use type: does not use Living arrangements: with family Gender identity (if verbalized by the patient): Female Spiritual care concerns: No Exam Narrative: GENERAL: Well-appearing, well-nourished, and in no acute distress. HEAD: Normocephalic, atraumatic. EYES: PERRLA and EOMI. ENT: Nares clear, no rhinorrhea or epistaxis. Mucous membranes moist. NECK: Supple. CHEST: Clear to auscultation. No respiratory distress. HEART: Regular rate and rhythm. No murmur heard. Normal peripheral pulses. EXTREMITIES: Normal range of motion. No edema. Left shoulder marked tenderness with gentle movement SKIN: Warm, dry, no rash. NEURO: No focal deficits. Alert and oriented x3. PSYCH: Normal mood and affect. Course Course Emergency Course: Informed pt about her Xray findings agreed with sedation followed by reduction Reevaluation(s) Reevaluation #1: feeling much better , informed her about the Xray findings feels good to go home Date: 04/28/25 Time: 15:46 Vital Signs Vital signs: Vital Signs Pulse Rate 73 04/28/25 12:37 Respiratory Rate 19 04/28/25 12:37 Pulse Oximetry 93 04/28/25 12:37 Temperature 36.6 C 04/28/25 14:30 Pulse Rate 85 04/28/25 16:46 Respiratory Rate 16 04/28/25 16:46 Blood Pressure 111/64 04/28/25 16:46 Pulse Oximetry 95 04/28/25 16:46 Oxygen Delivery Nasal Cannula 04/28/25 15:30 Oxygen Flow Rate 2 04/28/25 15:30 Procedures Orthopedic Joint Reduction Joint #1: Orthopedic Joint Reduction Date: 04/28/25 Orthopedic Joint Reduction Time: 13:30 Joint Reduction Location: shoulder Analgesia: procedural sedation Pre-Procedure Neuro Vascular Exam: normal Shoulder Technique Used (if applicable): traction/counter-traction Technique used: traction/counter-traction Post-reduction neuro exam: intact Post-reduction vascular: intact Post Reduction X-Ray Obtained: Yes Post Reduction X-Ray Results: reduced Splint Applied: Yes Patient Tolerated Procedure: no complications Procedural Sedation Procedural Sedation #1: Procedural Sedation Date: 04/28/25 Procedural Sedation Time: 13:30 Informed Consent Obtained: yes Equipment in Room: bag and mask Plan for Sedation: moderate sedation ASA Class: II NPO Status: last solid food (hours ago) (5) Explanation to Patient/Family: Risk/Benefits/Alternatives Pt. Educated on Procedural Sedation: Yes Re-evaluated immediately prior: Yes Preparation: desk monitor applied, pulse oximeter and capnometry used IV Propofol dose (mg): 80 Patient Tolerated Procedure: well Complications: none Additional Comments: pt was given additional 50 mg as first attempt did not reduce . rpt attempt was done with traction and counter traction , shoulder reduced MDM - Extremity Injury (Upper) Differential Diagnosis Differential diagnosis: Likely dislocation of shoulder Medical Records Attestation: I reviewed the patient's medical records. Lab Data Attestation: I reviewed the patient's lab results. Imaging Data Radiologist's impression: ITS Impressions Shoulder X-Ray 04/28/25 13:06 IMPRESSION: 1. Anterior dislocation of the left humeral head relative to the left glenohumeral joint. A postreduction x-ray is recommended 2. No fracture identified. Shoulder X-Ray 04/28/25 13:57 Impression: Persistent dislocation Shoulder X-Ray 04/28/25 14:16 Impression: Interval reduction. ECG Data EKG #1: ECG completion date: 04/28/25 ECG completion time: 12:39 EKG Interpretation: normal rate (70), sinus rhythm, PVCs, no ST changes, normal QRS and NL axis Discharge Plan Discharge Clinical Impression: Dislocation of shoulder region Patient Disposition: Home Condition: Stable Instructions: Shoulder Dislocation (ED), Moderate Sedation (ED) Patient Language: French Prescriptions: New hydrocodone-acetaminophen 5-325 mg tablet 1 tablet PO Q8H PRN (Reason: pain) Qty: 14 0RF No Action amlodipine 5 mg Tablet 5 mg PO DAILY pravastatin 80 mg Tablet 80 mg PO DAILY metformin 1,000 mg Tablet 1,000 mg PO BID aspirin 81 mg Tablet,Chewable 81 mg PO DAILY hydrochlorothiazide 25 mg Tablet 25 mg PO DAILY lisinopril 40 mg Tablet 40 mg PO DAILY atenolol 50 mg Tablet 50 mg PO DAILY multivitamin with folic acid [Daily-Giulia (with folic acid)] 400 mcg tablet 1 tablet PO DAILY Jardiance 25 mg tablet 25 mg PO DAILY furosemide 40 mg tablet 40 mg PO DAILY Rx Instructions: for 7 days 02/11/22 started glimepiride 2 mg tablet 2 mg PO DAILY calcium carbonate-vitamin D3 600 mg-10 mcg (400 unit) Capsule 1 cap PO DAILY potassium chloride 20 mEq tablet extended release 20 meq PO DAILY Rx Instructions: for 7 days started 02/11/22 famotidine 20 mg Tablet 20 mg PO Q12HR Qty: 20 0RF diphenhydramine HCl 25 mg Capsule 25 mg PO Q6H PRN (Reason: Itching) Qty: 20 0RF loratadine 10 mg Tablet 10 mg PO QAM Qty: 30 0RF Saccharomyces boulardii [Florastor] 250 mg Capsule 250 mg PO BID Qty: 60 0RF melatonin 5 mg Tablet 5 mg PO HS Qty: 30 0RF Follow-up/Referrals: Luigi,Prabhakar Casanova. [Primary Care Provider]
[2025-04-28] MEDS: IPRATROPIUM 0.5 MG/ALBUTEROL SULFATE 2.5 MG (BASE) AMPUL.NEB 3 ML INHALATION (16:01)
--- NOTE | 2025-04-29 14:30 | PC.NURSE ---
pt was given 7ml propofol at 1335 x ray was taken, joint still displaced pt was given another 2.5 ml propofol at 1352
--- NOTE | 2025-05-03 14:27 | PC.NURSE ---
pt was given 7ml propofol at 1335 x ray was taken, joint still displaced pt was given another 2.5 ml propofol at 1352
== END 2025-04-28 17:27 | disposition home or self-care (01) ==
PROVIDERS: Emergency Provider Family Medicine; PCP Internal Medicine Infectious Disease
DX: S43.015A Anterior dislocation of left humerus, initial encounter (principal); I10 Essential (primary) hypertension; E66.01 Morbid (severe) obesity due to excess calories; Z68.44 Body mass index [BMI] 60.0-69.9, adult; E11.9 Type 2 diabetes mellitus without complications; E78.5 Hyperlipidemia, unspecified; G47.30 Sleep apnea, unspecified; Z86.0101 Personal history of adenomatous and serrated colon polyps; I49.1 Atrial premature depolarization; R94.31 Abnormal electrocardiogram [ECG] [EKG]
CPT/HCPCS: 23650; 23655; 73030; 93005; 94640; 96374; 99284; 99285; A4565; J2270; J2405; J2704; J7030